=== PATIENT | male | born 1985 | race Two or more races ===

== ENCOUNTER 2017-11-23 07:55 | Emergency (ER) | payer SELFPAY ==
[2017-11-23 08:00] VITALS: BP 129/93
--- NOTE | 2017-11-23 08:23 | ER Document Report ---
HPI - HPI Patient complains to provider of: dental pain Onset: Last week Onset/Duration: Persistent Quality of pain: Achy Severity: Severe Pain Level: 5 Context: Patient presents emergency department with complaints of right lower dental pain. Patient reports symptoms started with sinus pressure/pain. He reports now the pain is in his right bottom back tooth. Reports cavity therer. Reports it feels better when he holds room temperature water in his mouth. Denies other symptoms such as fever vomiting diarrhea. Does not have dental insurance. Has been taking advil for the pain without relief of symptoms. Associated Symptoms: None Exacerbated by: Denies Relieved by: Denies Similar symptoms previously: No Recently seen / treated by doctor: No - CONSTITUTIONAL Constitutional: DENIES: Fever, Chills - EENT EENT: DENIES: Sore Throat, Ear Pain, Eye problems - NEURO Neurology: DENIES: Headache, Weakness, Vision blurred, Dizzinesss / Vertigo - CARDIOVASCULAR Cardiovascular: DENIES: Chest pain - RESPIRATORY Respiratory: DENIES: Trouble Breathing, Coughing - GASTROINTESTINAL Gastrointestinal: DENIES: Abdominal Pain, Black / Bloody Stools - URINARY Urinary: DENIES: Dysuria, Urgency, Frequency - REPRODUCTIVE Reproductive: DENIES: :, Postmenopausal, Abnormal bleeding / discharge - MUSCULOSKELETAL Musculoskeletal: DENIES: Extremity pain Past Medical History - General Information source: Patient - Social History Smoking Status: Current Every Day Smoker Chew tobacco use (# tins/day): No Frequency of alcohol use: Social Occupation: works outside Lives with: Family Family History: Reviewed & Not Pertinent Patient has suicidal ideation: No Patient has homicidal ideation: No Neurological Medical History: Reports: Hx Migraine Renal/ Medical History: Denies: Hx Peritoneal Dialysis GI Medical History: Reports: Hx Gastroesophageal Reflux Disease Psychiatric Medical History: Reports: Hx Depression Surgical Hx: Negative - Immunizations Hx Diphtheria, Pertussis, Tetanus Vaccination: Yes Vertical Provider Document - CONSTITUTIONAL Agree With Documented VS: Yes Exam Limitations: No Limitations General Appearance: WD/WN, No Apparent Distress - INFECTION CONTROL TRAVEL OUTSIDE OF THE [place] IN LAST 30 DAYS: No - HEENT HEENT: Atraumatic, Normocephalic. negative: Conjuctival Injection, Pharyngeal Exudate, Pharyngeal Tenderness, Pharyngeal Erythema, Tympanic Membrane Red Mouth Diagram: 1 - c/o dental pain with palpation, no obvious abscess, no erythema/swelling, opens mouth widely, no trismus, no ludwigs, good airway - NECK Neck: Normal Inspection, Supple. negative: Lymphadenopathy-Left, Lymphadenopathy-Right - RESPIRATORY Respiratory: Breath Sounds Normal, No Respiratory Distress O2 Sat by Pulse Oximetry: 99 - CARDIOVASCULAR Cardiovascular: Regular Rate - GI/ABDOMEN Gastrointestinal: Abdomen Soft, Abdomen Non-Tender - MUSCULOSKELETAL/EXTREMETIES Musculoskeletal/Extremeties: MAEW, FROM - NEURO Level of Consciousness: Awake, Alert, Appropriate Motor/Sensory: No Motor Deficit - DERM Integumentary: Warm, Dry Course - Re-evaluation Re-evalutation: 11/23/17 09:37 Patient instructed on penicillin and [place]. Patient was instructed to follow- up with dentist. He was provided with a written dental resource sheet. - Vital Signs Vital signs: Temp Pulse Resp BP Pulse Ox 97.6 F 68 16 129/93 H 99 11/23/17 08:00 11/23/17 08:00 11/23/17 08:00 11/23/17 08:00 11/23/17 08:00 Discharge - Discharge Clinical Impression: Pain, dental, Sinus pain Condition: Stable Disposition: HOME, SELF-CARE Instructions: [facility], Oral Narcotic Medication (OM), Penicillin V K ([facility]), Toothache ([facility]) Additional Instructions: *You have been evaluated for dental pain, Sinus pain *Take medications as prescribed *Follow up with dentist within one week *Return to ED for worsening condition, changes, needs Monitor your blood pressure. Your blood pressure was elevated today. This may be because you were anxious, in pain or because you need medication. It is important to follow up with your primary care provider for full evaluation. Prescriptions: Hydrocodone/Acetaminophen [[place] 5-325 Tablet] 1 each PO QID #10 tablet Penicillin V Potassium [Penicillin Vk 500 mg Tablet] 500 mg PO BID #20 tablet Forms: Smoking Cessation Education, Elevated Blood Pressure
== END 2017-11-23 08:40 | disposition home or self-care (01) ==
LOC: ER 07:55
DX: K08.9 Disorder of teeth and supporting structures, unspecified (principal); J34.89 Other specified disorders of nose and nasal sinuses; F17.200 Nicotine dependence, unspecified, uncomplicated
CPT/HCPCS: 99282

== ENCOUNTER 2019-08-21 10:13 | Emergency (ER) | payer SELFPAY ==
--- NOTE | 2019-08-21 10:48 | ER Document Report ---
ED Medical Screen (RME) - General Chief Complaint: Sore Throat Stated Complaint: SORE THROAT,FEVER Time Seen by Provider: 08/21/19 10:45 Mode of Arrival: Ambulatory Information source: Patient Notes: 33-year-old male presented to ED for complaint of sore throat fever and abdominal pain. He states this is been since Saturday. He states Saturday night he had a fever of 102 but he stayed at work did not come in. He is here today for continued pain fever. Patient is alert oriented respirations regular nonlabored he does have a muffled voice. Patient smokes 4 cigarettes a day, once on the weekend, denies use of any illicit drugs. Has any relevant medical history I have greeted and performed a rapid initial assessment of this patient. A comprehensive ED assessment and evaluation of the patient, analysis of test results and completion of medical decision making process will be conducted by an additional ED providers. TRAVEL OUTSIDE OF THE [place] IN LAST 30 DAYS: No - Related Data Allergies/Adverse Reactions: No Known Allergies Allergy (Verified 11/23/17 07:56) Past Medical History Neurological Medical History: Reports: Hx Migraine Renal/ Medical History: Denies: Hx Peritoneal Dialysis GI Medical History: Reports: Hx Gastroesophageal Reflux Disease Psychiatric Medical History: Reports: Hx Depression - Immunizations Hx Diphtheria, Pertussis, Tetanus Vaccination: Yes Physical Exam - Vital signs Vitals: Temp Pulse Resp BP Pulse Ox 98.5 F 79 18 176/77 H 100 08/21/19 10:29 08/21/19 10:29 08/21/19 10:29 08/21/19 10:29 08/21/19 10:29 Course - Vital Signs Vital signs: Temp Pulse Resp BP Pulse Ox 98.5 F 79 18 176/77 H 100 08/21/19 10:29 08/21/19 10:29 08/21/19 10:29 08/21/19 10:29 08/21/19 10:29
[2019-08-21] MEDS ORDERED: KETOROLAC TROMETHAMINE INJ/PF 30 MG/1 ML SDV IM ONE (10:49)
[2019-08-21] MEDS ORDERED: DEXAMETHASONE SOD PHOS INJ 10 MG/1 ML VIAL IM ONE (10:49)
[2019-08-21 11:20] LABS: ABSOLUTE BASOPHILS # (AUTO) 0.1 10^3/uL (0.0-0.2); ABSOLUTE EOSINOPHILS # (AUTO) 0.2 10^3/uL (0.0-0.6); ABSOLUTE LYMPHOCYTES (AUTO) 1.5 10^3/uL (0.5-4.7); ABSOLUTE MONOCYTES (AUTO) 2.1 10^3/uL (0.1-1.4); ABSOLUTE NEUT (AUTO) 11.8 10^3/uL (1.7-8.2); BASOPHILS % (AUTO) 0.8 % (0-2); EOSINOPHILS % (AUTO) 1.3 % (0-6); HEMATOCRIT 46.6 % (37.9-51.0); HEMOGLOBIN 15.8 g/dL (13.5-17.0); LYMPHOCYTES % (AUTO) 9.3 % (13-45); MEAN CORPUSCULAR HEMOGLOBIN 29.8 pg (27.0-33.4); MEAN CORPUSCULAR VOLUME 88 fl (80-97); MONOCYTES % (AUTO) 13.5 % (3-13); PLATELET COUNT 191 10^3/uL (150-450); RED BLOOD COUNT 5.32 10^6/uL (4.35-5.55); RED CELL DISTRIBUTION WIDTH 13.8 % (11.5-14.0); SEGMENTED NEUTROPHILS % (AUTO) 75.1 % (42-78); TOTAL CELLS COUNTED % (AUTO) 100 %; WHITE BLOOD COUNT 15.7 10^3/uL (4.0-10.5)
[2019-08-21 11:41] LABS: ALBUMIN 4.3 g/dL (3.5-5.0); ALKALINE PHOSPHATASE 64 U/L (38-126); ANION GAP 9 (5-19); ASPARTATE AMINO TRANSFERASE 28 U/L (17-59); BILIRUBIN,DIRECT 0.1 mg/dL (0.0-0.4); BILIRUBIN,TOTAL 0.5 mg/dL (0.2-1.3); BLOOD UREA NITROGEN 7 mg/dL (7-20); CALCIUM 9.8 mg/dL (8.4-10.2); CARBON DIOXIDE 26 mmol/L (22-30); CHLORIDE 105 mmol/L (98-107); GLUCOSE 94 mg/dL (75-110); POTASSIUM 4.8 mmol/L (3.6-5.0); TOTAL PROTEIN 7.7 g/dL (6.3-8.2)
[2019-08-21] MEDS ORDERED: AMOXICILLIN TRIHYDRATE 500 MG CAPSULE PO ONE (12:20)
--- NOTE | 2019-08-21 12:23 | ER Document Report ---
HPI - HPI Time Seen by Provider: 08/21/19 10:45 Pain Level: Denies Context: Patient is a 33-year-old male who presents to the emergency department with a chief complaint of sore throat. Patient reports he began having symptoms on Saturday. Patient reports the last time he checked his temp was Saturday night and it was 102. Patient reports he has had chills and night sweats. Patient reports nasal congestion without runny nose. Patient reports a severe sore throat. Patient reports he feels like he has strep throat. Patient reports he is attempted to use honey and teas for comfort without much relief. Patient reports he has had some abdominal pain but only when drinking water. Patient states his family member has had similar symptoms and did require going to the hospital. - CONSTITUTIONAL Constitutional: DENIES: Fever, Chills - EENT EENT: REPORTS: Sore Throat - REPRODUCTIVE Reproductive: DENIES: : Past Medical History - General Information source: Patient - Social History Smoking Status: Current Every Day Smoker Chew tobacco use (# tins/day): No Frequency of alcohol use: Social Drug Abuse: None Lives with: Family Family History: Reviewed & Not Pertinent Patient has suicidal ideation: No Patient has homicidal ideation: No - Past Medical History Cardiac Medical History: Reports: None Pulmonary Medical History: Reports: None EENT Medical History: Reports: None Neurological Medical History: Reports: Hx Migraine Endocrine Medical History: Reports: None Renal/ Medical History: Reports: None. Denies: Hx Peritoneal Dialysis Malignancy Medical History: Reports None GI Medical History: Reports: Hx Gastroesophageal Reflux Disease Musculoskeletal Medical History: Reports None Skin Medical History: Reports None Psychiatric Medical History: Reports: Hx Depression Traumatic Medical History: Reports: None Infectious Medical History: Reports: None - Immunizations Hx Diphtheria, Pertussis, Tetanus Vaccination: Yes Vertical Provider Document - CONSTITUTIONAL Agree With Documented VS: Yes Exam Limitations: No Limitations General Appearance: No Apparent Distress - INFECTION CONTROL TRAVEL OUTSIDE OF THE [place] IN LAST 30 DAYS: No - HEENT HEENT: Atraumatic, Normocephalic, PERRLA, Pharyngeal Exudate, Pharyngeal Erythema Notes: Patient does have some erythema noted to the tonsils bilaterally with exudate. Airway is patent. Uvula is midline. - NECK Neck: Normal Inspection Notes: + Anterior cervical lymphadenopathy. - RESPIRATORY Respiratory: Breath Sounds Normal, No Respiratory Distress - CARDIOVASCULAR Cardiovascular: Regular Rate, Regular Rhythm - GI/ABDOMEN Gastrointestinal: Abdomen Soft, Abdomen Non-Tender Notes: Abdomen is flat, soft and nontender. Patient does have hyperactive bowel sounds. - NEURO Level of Consciousness: Awake, Alert, Appropriate - DERM Integumentary: Warm, Dry, No Rash Course - Re-evaluation Re-evalutation: 08/21/19 12:29 Patient's physical exam was consistent for a possible strep. Patient does have exudative pharyngitis. Will treat with oral antibiotics. Will give a dose of steroids and anti-inflammatory injection prior to discharge. I did discuss this with the patient. Patient given strict return precautions. - Vital Signs Vital signs: Temp Pulse Resp BP Pulse Ox 98.5 F 79 18 176/77 H 100 08/21/19 10:29 08/21/19 10:29 08/21/19 10:29 08/21/19 10:29 08/21/19 10:29 - Laboratory Result Diagrams: 08/21/19 11:08/21/19 11:01 Laboratory results interpreted by me: Patient does have a mild leukocytosis of 15.7. There is no alteration in electrolytes. Patient's mono and strep test were negative. 08/21/19 11:01 WBC 15.7 H Lymph % (Auto) 9.3 L Jenkins % (Auto) 13.5 H Absolute Neuts (auto) 11.8 H Absolute Monos (auto) 2.1 H 08/21/19 12:28 Laboratory 08/21/19 08/21/19 08/21/19 11:01 11:01 11:01 WBC 15.7 H RBC 5.32 Hgb 15.8 Hct 46.6 MCV 88 MCH 29.8 MCHC 34.0 RDW 13.8 Plt Count 191 Lymph % (Auto) 9.3 L Jenkins % (Auto) 13.5 H Eos % (Auto) 1.3 Baso % (Auto) 0.8 Absolute Neuts (auto) 11.8 H Absolute Lymphs (auto) 1.5 Absolute Monos (auto) 2.1 H Absolute Eos (auto) 0.2 Absolute Basos (auto) 0.1 Seg Neutrophils % 75.1 Sodium 139.8 Potassium 4.8 Chloride 105 Carbon Dioxide 26 Anion Gap 9 BUN 7 Creatinine 1.01 Est GFR ( Amer) > 60 Est GFR (MDRD) Non-Af > 60 Glucose 94 Calcium 9.8 Total Bilirubin 0.5 Direct Bilirubin 0.1 Neonat Total Bilirubin Not Reportable Neonat Direct Bilirubin Not Reportable Neonat Indirect Bili Not Reportable AST 28 ALT 24 Alkaline Phosphatase 64 Total Protein 7.7 Albumin 4.3 Monotest NEGATIVE Group A Strep Rapid 08/21/19 11:01 WBC RBC Hgb Hct MCV MCH MCHC RDW Plt Count Lymph % (Auto) Jenkins % (Auto) Eos % (Auto) Baso % (Auto) Absolute Neuts (auto) Absolute Lymphs (auto) Absolute Monos (auto) Absolute Eos (auto) Absolute Basos (auto) Seg Neutrophils % Sodium Potassium Chloride Carbon Dioxide Anion Gap BUN Creatinine Est GFR ( Amer) Est GFR (MDRD) Non-Af Glucose Calcium Total Bilirubin Direct Bilirubin Neonat Total Bilirubin Neonat Direct Bilirubin Neonat Indirect Bili AST ALT Alkaline Phosphatase Total Protein Albumin Monotest Group A Strep Rapid NEGATIVE Discharge - Discharge Clinical Impression: Exudative pharyngitis, Sore throat, Nasal congestion Fever Qualifiers: Fever type: unspecified Qualified Code(s): R50.9 - Fever, unspecified Condition: Stable Disposition: HOME, SELF-CARE Additional Instructions: Today you are seen in the emergency department for sore throat. Although your strep test was negative your symptoms and physical examination are consistent with strep throat. I will go ahead and treat you with oral antibiotics. You are receiving your first dose here in the emergency department. Please take this antibiotic for its full course as instructed. *Please take Tylenol and ibuprofen as needed for pain and fever. Sip frequent clear liquids to stay hydrated. Avoid decongestants or antihistamines. *You have been given a dose of Decadron here in the emergency department. Decadron is a steroid. This will help with inflammation and discomfort of the throat. *You have also been given a dose of Toradol. Toradol is for pain. This will help with your sore throat as well. Toradol is an anti-inflammatory similar to her to ibuprofen. Please wait 6 to 8 hours before taking a dose of ibuprofen. Strep Throat Your sore throat is due to the streptococcus germ (strep throat). Strep throat usually makes you feel quite ill with fever and aches, headache, swollen sore throat, and tender bumps under the angles of the jaw. Strep throat requires antibiotic treatment. Although the sore throat may go away by itself, complications such as rheumatic fever, kidney disease, or throat abscess can occur. We usually prescribe antibiotics by mouth. Be sure to take the medicine until it's gone. If you stop early, the strep may come back. If you are vomiting, are severely ill, or can't remember to take pills, we can give you an antibiotic shot. Take acetaminophen or ibuprofen for pain and fever. Sip frequent clear liquids, or use popsicles or ice chips. Anesthetic sprays or lozenges may help. Make sure the air in the room is not too dry. Avoid using decongestants or a ntihistamines. Call the doctor if there is no improvement in three days, or if you have difficulty breathing, increasing throat pain, high fever, rash, or frequent vomiting. Prescriptions: Amoxicillin 1 tab PO BID 10 Days #20 tab Forms: Return to Work Referrals: [facility] [Provider Group] - Follow up as needed [facility] [Provider Group] - Follow up as needed
[2019-08-21 12:55] VITALS: BP 139/78
== END 2019-08-21 12:54 | disposition home or self-care (01) ==
LOC: ER 10:13
DX: J02.9 Acute pharyngitis, unspecified (principal); R50.9 Fever, unspecified; R09.81 Nasal congestion; R10.9 Unspecified abdominal pain; R59.0 Localized enlarged lymph nodes; D72.829 Elevated white blood cell count, unspecified; F17.200 Nicotine dependence, unspecified, uncomplicated; Z87.19 Personal history of other diseases of the digestive system
CPT/HCPCS: 99283; 96372; 36415; 87070; 87880; 85025; 86308; 80053; J1885; J1100